=== PATIENT | female | born 1990 | race Caucasian/White ===

== ENCOUNTER 2016-08-02 08:00 | Inpatient (IN) ==
[2016-08-02] MEDS ORDERED: Famotidine 20 MG/2 ML VIAL IVP PRN (08:31)
[2016-08-02] MEDS ORDERED: Naloxone 0.4 MG/ML INJ IVP PRN (08:31)
[2016-08-02] MEDS ORDERED: Metoclopramide 10 MG/2 ML VIAL IVP PRN (08:31)
[2016-08-02] MEDS ORDERED: Ringers Solution, Lactated 1,000 ML IVC SCH (08:45)
[2016-08-02] MEDS ORDERED: miSOPROStol 100 MCG TABLET PO SCH ×2 (08:49→12:00)
[2016-08-02 08:50] LABS: Basophils % 0.3 %; Eosinophils % 0.4 %; Hematocrit 38.1 % (35.3-44.9); Hemoglobin 13.2 g/dL (11.5-15.4); Immature Granulocytes % 0.4 % (0-4); Lymphocytes # 2.2 K/mcL (0.6-4.6); Lymphocytes % 23.9 %; Mean Corpuscular HGB Conc 34.6 g/dL (31.6-35.5); Mean Corpuscular Hemoglobin 29.6 pg (28.0-33.3); Mean Corpuscular Volume 85.4 fL (83.0-100.0); Mean Platelet Volume 12.9 fL (9.4-12.4); Monocytes # 0.4 K/mcL (0.0-1.3); Monocytes % 4.8 %; Neutrophils # 6.3 K/mcL (1.6-8.9); Platelet Count 274 K/mcL (140-400); Red Blood Count 4.46 M/mcL (3.82-4.97); Red Cell Distribution Width 13.7 % (11.5-14.5); Segmented Neutrophils % 70.2 %
--- NOTE | 2016-08-02 08:57 | OB/GYN History & Physical ---
Date of Encounter: 08/02/16 Time of Encounter: 08:52 Assessment and Plan (1) 39 weeks gestation of Current visit: Yes Status: Acute 39w 6d. complications: Obesity Family hx cleft palate with cleft lip. Blood type: O+ GBS: (-) Planned induction today. (2) Elective induction of labor planned Current visit: Yes Status: Acute Admit to labor and delivery. Cytotec 50mg PO Routine expectant management. Patient desires epidural for pain control. Expectant vaginal delivery. History of Present Illness Chief complaint: scheduled induction HPI: Ms. Parker is a 26 year old female presents from home for scheduled induction. at 39w 6d. complications: Obesity Family hx cleft palate with cleft lip. Blood type: O+ GBS: (-) HbSAg: nonreactive Ruella IgG: positive Varicella IgG: positive T. pallidum Ab: negative HIV: negative CF: negative Past Med Surg Social Fam HX - Past Medical History Medical history: no medical history Psychiatric history: no psych history - Social History Smoking Status: Never smoker Smokeless Tobacco Status: No Alcohol use: none Drug use: none - Family History Mother Hx Family Cardiac Disorders: Yes (HTN) Hx Family Endocrine Disorder: Yes (DM) Obstetrical History - Pregnancies : 1 Para: 0 Term: 0 : 0 Ab's: 0 Livin Medications and Allergies Acetaminophen [Tylenol] 325 mg PO PRN PRN 08/02/16 [History] Vit/Iron Fumarate/FA [ Tablet] 1 tab PO DAILY 08/02/16 [History ] Promethazine [Phenergan] 1 tab PO PRN PRN 08/02/16 [History] Ranitidine HCl [Zantac 75] 1 tab PO PRN PRN 08/02/16 [History] Allergies No Known Allergies Allergy (Verified 08/02/16 08:40) Review of System OB All systems PM: reviewed and no additional remarkable complaints except as stated - Constitutional Constitutional ROS IM: no fever(s), no headache(s), no lethargy, no malaise - Nose, mouth, and throat Nose, mouth and throat: no headache(s) - Cardiovascular Cardiovascular: no chest pain, no claudication, no dyspnea, no edema, no palpitations - Respiratory Respiratory: no cough, no dyspnea, no wheezing - Gastrointestinal Gastrointestinal: heartburn, nausea, no change in stool character - Genitourinary Genitourinary: no difficulty urinating, no dysuria, no vaginal discharge - Neurological Nerological: no dizziness, no vertigo Exam - Constitutional Constitutional: well developed, well nourished, no acute distress, obese - HEENT HEENT: Normocephaly, Mucus Membranes Moist - Neck Neck exam: normal inspection - Lungs Respiratory exam: CTAB - Cardiovascular Cardiovascular exam: RRR, +S1, +S2 - Abdomen Abdomen: Present: bowel sounds normal, gravid, non tender. Absent: guarding noted - Extremities Extremities exam: normal capillary refill, warm, radial pulses palpable and symetrical Results Result Diagrams: 08/02/16 08:35 Abnormal lab results MPV 12.9 fL (9.4-12.4) H 08/02/16 08:35 All other labs normal. - VTE Reasons for not Prescribing Prophylaxis: Treatment not Indicated - Low risk for VTE - Attending Attestation I examined this patient and my medical decision-making was reviewed with the IN HOME SALES CONSULTANT/PA/Advanced Practice Nurse/Resident Physician. I agree with the documented findings, disposition and treatment plan as described except to the extent set forth below.
[2016-08-02] MEDS ORDERED: miSOPROStol 100 MCG TABLET PO STA (09:16)
--- NOTE | 2016-08-02 11:43 | OB Labor Progress Note ---
Date of Encounter: 08/02/16 Time of Encounter: 11:41 Labor Progress Note - Subjective Subjective: Patient resting in bed. Denies any pain at this time. Discussed POC with patient. Patient denies any questions or concerns. - Cervix Cervix: 3/80/-2 - Heart Tones Heart Tones: 135 bpm moderate variability +15x15 accels no decel noted. Cat. 1 tracing - Chesaning Chesaning: 2-3 min apart - Interventions Interventions: SVE, AROM large amount of clear fluid. Patient tolerated well. - Plan Plan: Continue labor management. Nubain or Epidural for pain management if desires.
[2016-08-02] MEDS ORDERED: *HR* Nalbuphine 20 MG/ML AMPUL IM PRN (13:41)
[2016-08-02] MEDS: Ondansetron 4 MG/2 ML VIAL IVP PRN ×2 (14:08→23:34)
--- NOTE | 2016-08-02 14:29 | Anesthesia Evaluation PreOp ---
Date of Encounter: 08/02/16 Time of Encounter: 14:26 - Past History Planned Operation: labor epidural Cardiac History: Denies any Significant Hx Pulmonary History: Asthma (exercise-induced asthma, no meds, no recent attacks.) PROCED TECH History: Denies Any Significant HX Other Medical History: Denies Any Significant HX Anesthesia History: No Prior Anesthetic Complications, Past Anesthesia (wrist surgery, ankle surgery, tonsillectomy, colonoscopy.) : Yes Alcohol Use: none Drug use: none Medications and Allergies Acetaminophen [Tylenol] 325 mg PO PRN PRN 08/02/16 [History] Vit/Iron Fumarate/FA [ Tablet] 1 tab PO DAILY 08/02/16 [History ] Promethazine [Phenergan] 1 tab PO PRN PRN 08/02/16 [History] Ranitidine HCl [Zantac 75] 1 tab PO PRN PRN 08/02/16 [History] Allergies No Known Allergies Allergy (Verified 08/02/16 08:40) - Meds/Allergy Pre-op Review Medications Reviewed: Yes Allergies Reviewed: Yes Beta Blockers on Current Med List: No Anesthesia Results - Labs 08/02/16 08:35 Anesthesia Exam 137/81, 87, 16, 99% Height: 5'6" Weight: 230# NPO (# of Hours): 8 Pain Scale: 5 Pain Scale Used: Numeric (1 - 10) - HEENT Pupil (Motor): Pupils equal Mallampati: III Teeth: Normal Oral Opening: Greater than 3 - PROCED TECH LOC: Oriented PROCED TECH Motor: Normal RUE, Normal LUE, Normal RLE, Normal LLE, Normal Face PROCED TECH Sensory: Normal: RUE, LUE, RLE, LLE, Face - Cardiac Rhythm: Regular - Pulmonary Breath Sounds: bilateral Clear Respiratory Effort: Symmetrical Anesthesia Assess/Plan ASA Score: 2 Modified Melissa Scale for Level of Consciousness: Cooperative, oriented, and tranquil Anesthetic Plan: Regional Monitoring Plan: Standard Monitors
[2016-08-02] MEDS ORDERED: Bupivacaine-MPF 0.25% 10 ML VIAL EP ONE (14:32)
[2016-08-02] MEDS ORDERED: *HR* FentaNYL (PF) 100 MCG/2 ML VIAL EP ONE (14:32)
[2016-08-02] MEDS ORDERED: Epidural Premix (fent/bupiv) 110 ML EP SCH (14:45)
--- NOTE | 2016-08-02 15:18 | OB Labor Progress Note ---
Date of Encounter: 08/02/16 Time of Encounter: 15:16 Labor Progress Note - Subjective Subjective: The patient reports increasing discomfort with contractions. Not requesting epidural at this time. - Vital Signs Vital Signs: Afebrile, vital signs stable - Cervix Cervix: 6/80/-1 - Heart Tones Heart Tones: 120s, CAT 1 - Searchlight Searchlight: Contractions are not tracing well, irregular on external toco - Interventions Interventions: 39 week IUP induction of labor - Plan Plan: Continue induction of labor. Anesthesia has requested for pain management. Anticipate vaginal delivery
[2016-08-02] MEDS ORDERED: Epidural Premix (fent/bupiv) 110 ML EP ONE ×2 (16:41→23:26)
[2016-08-02] MEDS ORDERED: Bupivacaine-MPF 0.25% 10 ML VIAL ONE ×2 (16:41→22:25)
[2016-08-02] MEDS ORDERED: *HR* FentaNYL (PF) 100 MCG/2 ML VIAL ONE (16:41)
--- NOTE | 2016-08-02 17:17 | Anesthesia Procedures ---
Date of Encounter: 08/02/16 Time of Encounter: 16:43 Procedures: Anesthesia - Epidural/Spinal Patient ID/Chart reviewed: Yes Patient examined: Yes OB Eval: Gestational age: 39 OB Eval: : 1 OB Eval: Hx Para: 0 OB Eval: Dilated at (cm): 6 OB Eval: Contractions: Non-stressed pattern Consent Obtained: Yes Supplemental Oxygen: None/Room Air Site Prep: Aseptic Technique, Sterile prep and drape, Povidone-Iodine 1% Patient position: upright Local Anesthetic: Lidocaine 1% Amount of Local Anesthetic used: 5 Touhy Needle Gauge: 19 Touhy Needle Depth (cm): 6 Catheter Depth at Skin (cm): 18 Test Dose (1.5% Lido + Epi): Volume given (mls): 3 Test Dose Result: Negative Loading Dose: 0.25% Marcaine (mls): 8 Loading Dose: Fentanyl (mcg): 100 Loading Dose Administered: Thru Catheter Infusion Med: 0.125% Bupivacaine w/ 2 mcg/ml Fentanyl Infusion Rate (mls/hr): [address]: Tegaderm, Tape Interspace Used: L3-L4 Loss of Resistance (BLADIMIR): Yes Blood: No CSF: No Paresthesia: No Vitals + FHT's: 3 Vital Signs Time 1650 1655 1700 1705 1710 1715 BP 134/92 17/65 153/79 160/68 156/73 149/71 Pulse 73 89 97 88 102 91 FHTs 120 120 120 120 120 120
[2016-08-02] MEDS ORDERED: Oxytocin 20 units/ LR 1000 mL 20 UNIT/1,000 ML BAG IVC SCH (19:15)
--- NOTE | 2016-08-02 22:38 | Anesthesia Progress Note ---
Date of Encounter: 08/02/16 Time of Encounter: 22:25 Anesthesia Note - Note Note: 08/02/16 22:35 called to LDR 10 for c/o pain with contractions to low abdomen and pelvis. Patient 9.5 cm dilated. Epidural working and has not migrated. Aspirated and negative for CSF and blood. Injected 0.25% bupivacaine 10ml in 3 divided doses. Patient tolerated well, Maternal VVV and FHTs stable throughout.
[2016-08-02] MEDS ORDERED: Lidocaine/EPI 1:100k 1% 30 ML VIAL ONE (23:26)
[2016-08-03] MEDS ORDERED: Acetaminophen 325 MG TABLET PO ONE (00:34)
[2016-08-03 01:55] LABS: Alanine Aminotransferase 26 Units/L (0-55); Aspartate Amino Transferase 23 Units/L (5-34); BUN/Creatinine Ratio 11 (6-26); Blood Urea Nitrogen 8 mg/dL (7-20); Lactate Dehydrogenase 167 Units/L (159-327); Uric Acid 7.4 mg/dL (2.6-6.0); eGFR For African Americans > 60 (> 60); eGFR For Non-African Americans > 60 (> 60)
--- NOTE | 2016-08-03 02:48 | OB Labor Progress Note ---
Date of Encounter: 08/03/16 Time of Encounter: 02:46 Labor Progress Note - Subjective Subjective: pt comfortable w/ epidural - Vital Signs Vital Signs: T99.4, bp 140s/80s - Cervix Cervix: complete/+2 - Heart Tones Heart Tones: 130s CAT1 - [place]: q2-3' x 40-50mg - Interventions Interventions: Term induction, complete, elevated BPs in labor - Plan Plan: Start pushing, LFTs reviewed, observe temp, Tylenol given
--- NOTE | 2016-08-03 04:11 | OB/GYN Procedure Note ---
Delivery - Delivery Date: 08/03/16 Provider: Lara Avalos Delivery induction: misoprostol Delivery augmentation: rupture of membranes, pitocin Delivery monitor: external FHT, external uterine, internal uterine Anesthesia: intravenous, epidural Estimated Blood Loss: 100 - (s) A Infant Delivery Date: 08/03/16 Infant Delivery Time: 03:39 Presentation: vertex Position: ADOLFO Route of delivery: Gender: Male Viability: Viable Pounds: 7 Ounces: 10 at 1 minute: 8 at 5 mins: 9 Shoulder Dystocia: not encountered Specimens collected: cord blood Placenta: spontaneous, uterine exploration Cord: 3 umbilical vessels - Repair Episiotomy: none Laceration Description: Vaginal - Complications Delivery complications: none Delivery comments: The patient was complete and pushing with epidural anesthesia with a spontaneous vaginal delivery in the ADOLFO position of a vigorous male weighing 7 lbs. 10 oz. with Apgars of 8 at 1 minute and 9 at [address] was [address] on the maternal abdomen. The cord was clamped and cut after pulsations ceased. Cord blood obtained. The placenta was delivered spontaneous and intact. Right vaginal laceration was repaired with 3-0 Vicryl in a running locking fashion. Estimated blood loss 100 mL, complications none - Disposition Mom disposition: stable in LDR [place] disposition: stable in LDR
[2016-08-03] MEDS ORDERED: Oxytocin 20 units/ LR 1000 mL 20 UNIT/1,000 ML BAG IVC SCH (05:51)
[2016-08-03] MEDS ORDERED: Rho Immune Globulin 1,500 UNIT SYRINGE IM PRN (05:51)
[2016-08-03] MEDS ORDERED: Measles/Mumps/Rubella Vacc 0.5 ML VIAL SQ PRN (05:51)
[2016-08-03] MEDS ORDERED: *HR* HYDROcodone/Acet 5/325 mg TABLET PO PRN (05:51)
[2016-08-03] MEDS: Prenatal Vit/FA 1 EACH TABLET PO SCH (08:59)
[2016-08-03] MEDS: Ibuprofen 600 MG TABLET PO PRN ×2 (08:59→18:12)
[2016-08-04 07:07] LABS: Basophils # 0.1 K/mcL (0.0-0.2); Basophils % 0.4 %; Eosinophils # 0.1 K/mcL (0.0-0.6); Eosinophils % 0.6 %; Hematocrit 31.3 % (35.3-44.9); Hemoglobin 10.2 g/dL (11.5-15.4); Immature Granulocytes % 0.4 % (0-4); Lymphocytes # 2.2 K/mcL (0.6-4.6); Lymphocytes % 18.5 %; Mean Corpuscular HGB Conc 32.6 g/dL (31.6-35.5); Mean Corpuscular Hemoglobin 28.6 pg (28.0-33.3); Mean Corpuscular Volume 87.7 fL (83.0-100.0); Mean Platelet Volume 13.1 fL (9.4-12.4); Monocytes # 0.7 K/mcL (0.0-1.3); Monocytes % 5.7 %; Neutrophils # 8.8 K/mcL (1.6-8.9); Platelet Count 211 K/mcL (140-400); Red Blood Count 3.57 M/mcL (3.82-4.97); Red Cell Distribution Width 14.1 % (11.5-14.5); Segmented Neutrophils % 74.4 %
--- NOTE | 2016-08-04 09:34 | Discharge Summary ---
Date of Encounter: 08/04/16 Time of Encounter: 09:32 - Discharge Diagnosis (1) 39 weeks gestation of Priority: Secondary Status: Acute (2) Elective induction of labor planned Priority: Secondary Status: Acute (3) Vaginal delivery Priority: Primary Status: Acute Comments: Meeting milestones - Discharge Medications Prescriptions: HYDROcodone/Acet 5/325 mg [[place] 5-325 mg] 1 tab PO Q6HR PRN #20 tablet PRN Reason: Moderate Pain (4-6) Ibuprofen [Motrin] 600 mg PO Q6HR PRN #30 tablet PRN Reason: Cramping Ferrous Sulfate 325 mg PO DAILY #30 tablet Home Medications: Vit/Iron Fumarate/FA [ Tablet] 1 tab PO DAILY 08/02/16 [History ] Promethazine [Phenergan] 1 tab PO PRN PRN 08/02/16 [History] Ranitidine HCl [Zantac 75] 1 tab PO PRN PRN 08/02/16 [History] Ferrous Sulfate 325 mg PO DAILY #30 tablet 08/04/16 [Rx] HYDROcodone/Acet 5/325 mg [[place] 5-325 mg] 1 tab PO Q6HR PRN #20 tablet [Rx] Ibuprofen [Motrin] 600 mg PO Q6HR PRN #30 tablet 08/04/16 [Rx] Allergies/Adverse Reactions: Allergies No Known Allergies Allergy (Verified 08/02/16 08:40) Data Procedures and tests throughout hospitalization: Laboratory Tests 08/02/16 08/03/16 08/04/16 08:35 01:07 06:20 WBC 9.0 11.8 H RBC 4.46 3.57 L Hgb 13.2 10.2 L D Hct 38.1 31.3 L MCV 85.4 87.7 MCH 29.6 28.6 MCHC 34.6 32.6 RDW 13.7 14.1 Plt Count 274 211 MPV 12.9 H 13.1 H Immature Gran % 0.4 0.4 Seg Neutrophils % 70.2 74.4 Lymphocytes % 23.9 18.5 Monocytes % 4.8 5.7 Eosinophils % 0.4 0.6 Basophils % 0.3 0.4 Neutrophils # 6.3 8.8 Lymphocytes # 2.2 2.2 Monocytes # 0.4 0.7 Eosinophils # 0.0 0.1 Basophils # 0.0 0.1 BUN 8 Creatinine 0.73 Est GFR ( Amer) > 60 Est GFR (Non-Af Amer) > 60 BUN/Creatinine Ratio 11 Uric Acid 7.4 H AST 23 ALT 26 Lactate Dehydrogenase 167 Labs on day of discharge: Labs from last 24 hours 08/04/16 06:20 WBC 11.8 H RBC 3.57 L Hgb 10.2 L D Hct 31.3 L MCV 87.7 MCH 28.6 MCHC 32.6 RDW 14.1 Plt Count 211 MPV 13.1 H Immature Gran % 0.4 Seg Neutrophils % 74.4 Lymphocytes % 18.5 Monocytes % 5.7 Eosinophils % 0.6 Basophils % 0.4 Neutrophils # 8.8 Lymphocytes # 2.2 Monocytes # 0.7 Eosinophils # 0.1 Basophils # 0.1 Date of admission: 08/02/16 08:17 Primary care physician: KERRY PTETY Consults: 08/03/16 05:51 Consult to Hospital Ward Clerk [CONS] Routine Comment: Vaginal delivery, consult needed Discharging clinician: Lara Avalos Anticipated date of discharge: 08/04/16 - Patient Status Disposition: Home, Self-Care Condition: Good Functional capacity at discharge: independent ambulation Overall status at discharge: patient is progressing back to baseline - Discharge Instructions Follow Up With: NO,PCP [Primary Care Provider] - - Diet and Activity Activity: increase activity as tolerated, resume usual activities as tolerated Diet: regular diet Hospital Course Reason for admission: induction of labor Delivery: Episiotomy: none Laceration: vaginal side wall Other procedures: none complications: none Discharge diagnosis: IUP at term delivered [place] baby: male Hospital course: Uncomplicated meeting milestones Time Attestation: Total time spent providing and/or coordinating discharge services: Time Spent: Less than 30 minutes Exam - Constitutional Vitals: Temp Pulse Resp BP Pulse Ox 97.7 F 89 12 124/85 96 08/04/16 03:49 08/04/16 03:49 08/04/16 03:50 08/04/16 03:49 08/04/16 03:49 General appearance IM: cooperative, A&O X 3, pleasant, no acute distress - Respiratory Respiratory exam: Absent: respiratory distress - Cardiovascular Cardiovascular exam IM: Absent: irregular rhythm - GI/Abdominal GI/Abdominal exam IM: normal bowel sounds, soft, no peritoneal signs - Rectal Rectal exam: deferred - Uterine Tone: Firm Uterus Position: 2 Fingers Below Umbilicus, Midline - Extremities Exam Extremities exam IM: Absent: calf tenderness - Neurological Exam Neurological exam: alert, no focal deficits
[2016-08-04] MEDS: Ibuprofen 600 MG TABLET PO PRN (09:41)
[2016-08-04] MEDS: Prenatal Vit/FA 1 EACH TABLET PO SCH (09:41)
[2016-08-04 10:04] VITALS: BP 139/87
[2016-08-04] MEDS ORDERED: Lanolin 7 G OINT...G. TP PRN (15:15)
== END 2016-08-04 15:50 | disposition home or self-care (01) | DRG 775 ==
LOC: 1NENULAB 08:17 → 1NENUOBS 08-03 05:49
PROVIDERS: ADMIT Obstetrics & Gynecology; ATTEND Obstetrics & Gynecology

== ENCOUNTER 2018-01-05 21:07 | Inpatient (IN) ==
[~2018-01-05 21:07] MED LIST: *HR* Nalbuphine 10 MG/ML AMPUL IVP PRN; Famotidine 20 MG/2 ML VIAL IVP PRN; Metoclopramide 10 MG/2 ML VIAL IVP PRN; Naloxone 0.4 MG/ML INJ IVP PRN; Ondansetron 4 MG/2 ML VIAL IVP PRN
[2018-01-05] MEDS ORDERED: Ringers Solution, Lactated 1,000 ML IVC SCH (21:15)
[2018-01-05] MEDS ORDERED: Ringers Solution, Lactated 1,000 ML ONE (21:20)
[2018-01-05] MEDS ORDERED: Oxytocin 20 units/ LR 1000 mL 20 UNIT/1,000 ML BAG IVC SCH (21:45)
[2018-01-05 21:46] LABS: Basophils % 0.2 %; Eosinophils % 0.1 %; Hematocrit 37.5 % (35.3-44.9); Hemoglobin 13.1 g/dL (11.5-15.4); Immature Granulocytes % 0.4 % (0-4); Lymphocytes # 1.6 K/mcL (0.6-4.6); Lymphocytes % 15.6 %; Mean Corpuscular HGB Conc 34.9 g/dL (31.6-35.5); Mean Corpuscular Hemoglobin 30.1 pg (28.0-33.3); Mean Corpuscular Volume 86.2 fL (83.0-100.0); Mean Platelet Volume 12.3 fL (9.4-12.4); Monocytes # 0.6 K/mcL (0.0-1.3); Neutrophils # 7.7 K/mcL (1.6-8.9); Platelet Count 263 K/mcL (140-400); Red Blood Count 4.35 M/mcL (3.82-4.97); Red Cell Distribution Width 12.9 % (11.5-14.5); Segmented Neutrophils % 77.7 %
[2018-01-05 21:47] LABS: Amphetamine Screen,Urine Negative ng/mL (Cutoff=1000); Barbiturate Screen,Urine Negative ng/mL (Cutoff=200); Benzodiazepines Screen,Urine Negative ng/mL (Cutoff=200); Cannabinoid Screen,Urine Negative ng/mL (Cutoff = 50); Cocaine Screen,Urine Negative ng/mL (Cutoff= 300); Opiate Screen,Urine Negative ng/mL (Cutoff=300); Phencyclidine Screen,Urine Negative ng/mL (Cutoff=25)
[2018-01-05 21:59] LABS: Alanine Aminotransferase 5 Units/L (7-52); Aspartate Amino Transferase 10 Units/L (13-39); BUN/Creatinine Ratio 15 (6-26); Blood Urea Nitrogen 6 mg/dL (6-20); Lactate Dehydrogenase 121 Units/L (140-271); Uric Acid 5.2 mg/dL (2.3-7.6); eGFR For Non-African Americans > 60 (> 60)
--- NOTE | 2018-01-05 22:02 | OB/GYN History & Physical ---
Date of Encounter: 01/05/18 Time of Encounter: 21:55 Assessment and Plan (1) 39 weeks gestation of Current visit: Yes Status: Acute Admit to Labor and Delivery due to Spontaneous Rupture of Membrane Induction management: Pitocin Pain Management: epidural to be administered upon request Continuous monitoring PIH labs to be reviewed due to elevated BPs on arrival GBS negative Anticipate Vaginal Delivery Dr. Jensen is current OB incident response consultant, and available as needed (2) Intrauterine Current visit: Yes Status: Acute (3) Obesity during Current visit: Yes Status: Acute History of Present Illness Chief complaint: Leakage of Fluid HPI: Ms. Fidel Hammer is a 27 year old female, who presents at 39 weeks 5 days with leakage of clear fluid since 6am this morning (16hrs ago). Denies foul odor of fluid or vaginal bleeding. Endorses movement. Currently notes contractions that have been progressively getting stronger throughout the day. Contractions are currently 4-5 minutes apart. Planned for induction of labor tomorrow with Dr. Avalos, who has provided care throughout . Dr. Jensen is the OB incident response consultant. Lab Results: Blood Type: O-positive Rh Status: Positive GBS Status: Negative Hep B Surf Ag: Nonreactive HIV Ab: Nonreactive Treponema Ab: Negative G/C: Not detected Varicella: Immune Rubella: Immune Urine Drug Screen: Not detected Past Med Surg Social Fam HX - Past Medical History Attestation: Yes The following information was validated with the patient. Source: patient Medical history: migraine Additional medical history: FIBROMYALGIA. GASTRIC ULCER. EXERCISE-INDUCED ASTHMA. RA. BILIARY COLIC Psychiatric history: no psych history - Past Surgical History Surgical History: cholecystectomy Additional surgical history: biopsy,other (stomach). sx right wrist, right foot , right ankle - Social History Smoking Status: Never smoker Smokeless Tobacco Status: No Alcohol use: none Drug use: none - Family History Mother Hx Family Cardiac Disorders: Yes (HTN) Hx Family Endocrine Disorder: Yes (DM) Obstetrical History - Pregnancies : 2 Para: 1 Term: 1 : 0 Ab's: 0 Livin Medications and Allergies Vit/Iron Fumarate/FA [ Tablet] 1 tab PO DAILY 08/02/16 [History ] Acetaminophen [Tylenol] 1 tab PO PRN PRN 01/05/18 [History] raNITIdine HCl [Zantac] 1 tab PO BID 01/05/18 [History] 3 Allergy/AdvReac Type Severity Reaction Status Date / Time No Known Allergies Allergy Verified 01/05/18 20:58 Review of System OB All systems PM: reviewed and no additional remarkable complaints except as stated Exam - Vital Signs Vital signs: Vital Signs Reviewed and Stable - Constitutional Constitutional: well developed, well nourished, no acute distress - HEENT HEENT: EOMI, PERRL - Neck Neck exam: full ROM - Lungs Respiratory exam: CTAB - Cardiovascular Cardiovascular exam: RRR, +S1, +S2 - Abdomen Abdomen: Present: bowel sounds normal, gravid, non tender - Extremities Extremities exam: full ROM, normal capillary refill, normal inspection, radial pulses palpable and symmetrical - Cervix Dilation: 3 (Per NALLELY Tay) Effacement: 80 Station: -2 - Comments Comments: Category 1 Tracing; FHR = 140s Results Result Diagrams: 01/05/18 21:26 01/05/18 21:26 All other labs normal. - VTE Reasons for not Prescribing Prophylaxis: Treatment not Indicated - Low risk for VTE
--- NOTE | 2018-01-05 22:25 | OB Labor Progress Note ---
Date of Encounter: 01/05/18 Time of Encounter: 22:23 Labor Progress Note - Subjective Subjective: Pt comfortable with contractions. Reports they are 4-5 minutes apart. - Cervix Cervix: 5/70/-2 - Heart Tones Heart Tones: FHR Category I - [place]: Contractions q 5 minutes and palpate mild - Interventions Interventions: IUPC - Plan Plan: Continue expectant management Increase pitocin to adequate contraction pattern Frequent position changes Anticipate
[2018-01-05 23:01] LABS: Protein/Creatinine Ratio,Urine 0.7 mg/mg (0.00-0.20)
[2018-01-05] MEDS ORDERED: *HR* Labetalol 20 MG/4 ML SYRINGE IVP ONE ×2 (23:27→23:29)
[2018-01-06] MEDS ORDERED: EPHEDrine 50 MG/ML VIAL IVP PRN (00:18)
[2018-01-06] MEDS ORDERED: Ringers Solution, Lactated 500 ML IVC ONE (00:18)
[2018-01-06] MEDS ORDERED: Lidocaine -MPF 1% 5 ML AMPUL ONE (00:22)
[2018-01-06] MEDS ORDERED: Epidural Premix (fent/bupiv) 110 ML EP SCH (00:30)
[2018-01-06] MEDS ORDERED: Lidocaine/EPI 1:200k 2% PF 20 ML VIAL ONE (00:59)
--- NOTE | 2018-01-06 01:08 | Anesthesia Evaluation PreOp ---
Date of Encounter: 01/06/18 Time of Encounter: 01:07 - Past History Planned Operation: TIA Cardiac History: Denies any Significant Hx Pulmonary History: Denies Any Significant HX LAST SCOURER History: Denies Any Significant HX Other Medical History: Other (Fibromyalgia) Anesthesia History: No Prior Anesthetic Complications, Past Anesthesia : Yes Alcohol Use: none Drug use: none Medications and Allergies Vit/Iron Fumarate/FA [ Tablet] 1 tab PO DAILY 08/02/16 [History ] Acetaminophen [Tylenol] 1 tab PO PRN PRN 01/05/18 [History] raNITIdine HCl [Zantac] 1 tab PO BID 01/05/18 [History] 3 Allergy/AdvReac Type Severity Reaction Status Date / Time No Known Allergies Allergy Verified 01/05/18 20:58 - Meds/Allergy Pre-op Review Medications Reviewed: Yes Allergies Reviewed: Yes Beta Blockers on Current Med List: No Anesthesia Results - Labs 01/05/18 21:26 01/05/18 21:26 Anesthesia Exam O2 Sat Height 1.68 m Weight 108.59 kg Pain Scale: 9 Pain Scale Used: Numeric (1 - 10) - HEENT Pupil (Motor): Pupils equal Mallampati: II Teeth: Normal Oral Opening: Greater than 3 - LAST SCOURER LOC: Oriented LAST SCOURER Motor: Normal RUE, Normal LUE, Normal RLE, Normal LLE, Normal Face LAST SCOURER Sensory: Normal: RUE, LUE, RLE, LLE, Face - Cardiac Rhythm: Regular Murmur: None JVD: No Carotid Bruit: No - Pulmonary Breath Sounds: bilateral Clear Respiratory Effort: Symmetrical Anesthesia Assess/Plan ASA Score: 2 Modified [place] Scale for Level of Consciousness: Cooperative, oriented, and tranquil Anesthetic Plan: General (plan b), Regional (plan a) Autologous Blood: Yes Monitoring Plan: Standard Monitors Recovery Plan: PACU
--- NOTE | 2018-01-06 01:12 | Anesthesia Procedures ---
Date of Encounter: 01/06/18 Time of Encounter: 01:08 Procedures: Anesthesia - Epidural/Spinal Patient ID/Chart reviewed: Yes Patient examined: Yes OB Eval: Gestational age: 39 OB Eval: : 2 OB Eval: Hx Para: 1 OB Eval: Dilated at (cm): 5 (after epidural first check = 9.5cm) OB Eval: Contractions: Non-stressed pattern Consent Obtained: Yes Supplemental Oxygen: None/Room Air Site Prep: Aseptic Technique, Sterile prep and drape, Povidone-Iodine 1% Patient position: upright Local Anesthetic: Lidocaine 1% Amount of Local Anesthetic used: 3 Touhy Needle Gauge: 18 Touhy Needle Depth (cm): 9 Catheter Depth at Skin (cm): 20 Test Dose (1.5% Lido + Epi): Volume given (mls): 5 Test Dose Result: Negative Loading Dose: Other: 10ml epidural pharm bag premix+5ml 2%lido with epi Loading Dose Administered: Thru Catheter Infusion Rate (mls/hr): [address]: Tegaderm, Tape Interspace Used: L3-L4 Loss of Resistance (BLADIMIR): Yes Blood: No CSF: No Paresthesia: No Procedure: pt tolerated procedure well. no complications. vss. fhr stable. pt started at 5cm prior to procedure and progressed to 9.5cm immediately after the epidural was placed. no immediate complications noted. see nursing notes for complete vitals.
--- NOTE | 2018-01-06 01:50 | OB/GYN Procedure Note ---
Delivery - Delivery Date: 01/06/18 Provider: Og Jensen Delivery induction: oxytocin Delivery monitor: external FHT, internal uterine Anesthesia: epidural Quantitated Blood Loss: 200 - (s) A Infant Delivery Date: 01/06/18 Delivery Time: : Presentation: vertex Position: CRISTAL Route of delivery: vacuum extraction Gender: Male Viability: Viable Pounds: 7 Ounces: 2 at 1 minute: 8 at 5 mins: 9 Shoulder Dystocia: not encountered Specimens collected: cord blood Placenta: spontaneous Cord: nuchal cord, 3 umbilical vessels - Repair Episiotomy: none Laceration Description: None - Complications Delivery complications: none - Disposition Mom disposition: stable in LDR [place] disposition: stable in LDR - Comments Comments: 27-year-old female 2 now para 2 presented to labor and delivery after rupture membranes this morning she was alexus regularly for augmentation was given Pitocin to progress fairly quickly eventually reach complete dilatation she was pushing well however she did have deceleration right before delivery down to the 60s to 80s therefore with good maternal effort and + 3 station and vacuum was placed on head. Pressures taken to 600 mmHg a 32nd pull with excellent progression infant was delivered from +3 station infant did rotate during delivery. After delivery of the head was a loose nuchal cord 1 which was reduced. was delivered without difficulty. Cord was clamped cut weight is some be 7 lbs. 2 oz. Apgars of 8 at 1 minute and 9 at 5 minutes by spontaneous delivery three-vessel cord. there is some increased bleeding manual examination to find approximate 3 cm piece of placenta which was removed manually and there were some small membranes adjacent to this. once these were removed uterus did clamp down firmly estimated blood loss 200 ml mother and recovered in labor and delivery
[2018-01-06] MEDS ORDERED: Oxytocin 20 units/ LR 1000 mL 20 UNIT/1,000 ML BAG IVC SCH (04:02)
[2018-01-06] MEDS ORDERED: Measles/Mumps/Rubella Vacc 0.5 ML VIAL SQ PRN (04:02)
[2018-01-06] MEDS ORDERED: Acetaminophen 325 MG TABLET PO PRN (04:02)
[2018-01-06] MEDS ORDERED: Rho Immune Globulin 1,500 UNIT SYRINGE IM PRN (04:02)
[2018-01-06] MEDS: Ibuprofen 600 MG TABLET PO PRN ×3 (05:04→23:02)
[2018-01-06] MEDS: Famotidine 20 MG TABLET PO SCH ×2 (07:55→20:45)
[2018-01-06] MEDS: Prenatal Vit/FA 1 EACH TABLET PO SCH (07:55)
[2018-01-07 06:05] LABS: Basophils % 0.3 %; Eosinophils % 0.3 %; Hematocrit 30.7 % (35.3-44.9); Hemoglobin 10.4 g/dL (11.5-15.4); Immature Granulocytes % 0.6 % (0-4); Lymphocytes % 25.1 %; Mean Corpuscular HGB Conc 33.9 g/dL (31.6-35.5); Mean Corpuscular Hemoglobin 30.2 pg (28.0-33.3); Mean Corpuscular Volume 89.2 fL (83.0-100.0); Monocytes # 0.6 K/mcL (0.0-1.3); Monocytes % 7.2 %; Neutrophils # 5.2 K/mcL (1.6-8.9); Platelet Count 191 K/mcL (140-400); Red Blood Count 3.44 M/mcL (3.82-4.97); Red Cell Distribution Width 13.4 % (11.5-14.5); Segmented Neutrophils % 66.5 %
[2018-01-07] MEDS: Ibuprofen 600 MG TABLET PO PRN (08:03)
[2018-01-07] MEDS: Famotidine 20 MG TABLET PO SCH (08:03)
[2018-01-07] MEDS: Prenatal Vit/FA 1 EACH TABLET PO SCH (08:04)
[2018-01-07 08:32] VITALS: BP 131/97
--- NOTE | 2018-01-07 09:56 | Discharge Summary ---
Date of Encounter: 01/07/18 Time of Encounter: 09:53 - Discharge Diagnosis (1) Vaginal delivery Priority: Primary Status: Acute Comments: Pt meeting milestones. (2) Encounter for care or examination of lactating mother Priority: Secondary Status: Acute Comments: Rx breastpump given. LC consult complete. - Discharge Medications Prescriptions: Ibuprofen [Motrin] 600 mg PO Q6HR PRN #30 tablet PRN Reason: Cramping Docusate [Colace] 100 mg PO BID #60 capsule Home Medications: Vit/Iron Fumarate/FA [ Tablet] 1 tab PO DAILY 08/02/16 [History ] raNITIdine HCl [Zantac] 1 tab PO BID 01/05/18 [History] Breast Pump [BREAST PUMP] 1 each .ROUTE AD #1 each 01/07/18 [Rx] Docusate [Colace] 100 mg PO BID #60 capsule 01/07/18 [Rx] Ibuprofen [Motrin] 600 mg PO Q6HR PRN #30 tablet 01/07/18 [Rx] Allergies/Adverse Reactions: 3 Allergy/AdvReac Type Severity Reaction Status Date / Time No Known Allergies Allergy Verified 01/05/18 20:58 Data Procedures and tests throughout hospitalization: Laboratory Tests 01/05/18 01/05/18 01/05/18 21:26 21:26 21:26 WBC 9.9 RBC 4.35 Hgb 13.1 Hct 37.5 MCV 86.2 MCH 30.1 MCHC 34.9 RDW 12.9 Plt Count 263 MPV 12.3 Immature Gran % 0.4 Seg Neutrophils % 77.7 Lymphocytes % 15.6 Monocytes % 6.0 Eosinophils % 0.1 Basophils % 0.2 Neutrophils # 7.7 Lymphocytes # 1.6 Monocytes # 0.6 Eosinophils # 0.0 Basophils # 0.0 BUN 6 Creatinine 0.40 L Est GFR ( Amer) > 60 Est GFR (Non-Af Amer) > 60 BUN/Creatinine Ratio 15 Uric Acid 5.2 AST 10 L ALT 5 L Lactate Dehydrogenase 121 L Urine Creatinine Protein/Creatinin Ratio Urine Total Protein Urine Opiates Screen Negative Ur Barbiturates Screen Negative Ur Phencyclidine Scrn Negative Ur Amphetamines Screen Negative U Benzodiazepines Scrn Negative Urine Cocaine Screen Negative U Marijuana (THC) Screen Negative Ur Drug Screen Interp See Below 01/05/18 01/07/18 22:31 05:45 WBC 7.8 RBC 3.44 L Hgb 10.4 L D Hct 30.7 L MCV 89.2 MCH 30.2 MCHC 33.9 RDW 13.4 Plt Count 191 MPV 12.0 Immature Gran % 0.6 Seg Neutrophils % 66.5 Lymphocytes % 25.1 Monocytes % 7.2 Eosinophils % 0.3 Basophils % 0.3 Neutrophils # 5.2 Lymphocytes # 2.0 Monocytes # 0.6 Eosinophils # 0.0 Basophils # 0.0 BUN Creatinine Est GFR ( Amer) Est GFR (Non-Af Amer) BUN/Creatinine Ratio Uric Acid AST ALT Lactate Dehydrogenase Urine Creatinine 179 Protein/Creatinin Ratio 0.70 H Urine Total Protein 126 H Urine Opiates Screen Ur Barbiturates Screen Ur Phencyclidine Scrn Ur Amphetamines Screen U Benzodiazepines Scrn Urine Cocaine Screen U Marijuana (THC) Screen Ur Drug Screen Interp Labs on day of discharge: Labs from last 24 hours 01/07/18 05:45 WBC 7.8 RBC 3.44 L Hgb 10.4 L D Hct 30.7 L MCV 89.2 MCH 30.2 MCHC 33.9 RDW 13.4 Plt Count 191 MPV 12.0 Immature Gran % 0.6 Seg Neutrophils % 66.5 Lymphocytes % 25.1 Monocytes % 7.2 Eosinophils % 0.3 Basophils % 0.3 Neutrophils # 5.2 Lymphocytes # 2.0 Monocytes # 0.6 Eosinophils # 0.0 Basophils # 0.0 Date of admission: 01/05/18 21:07 Primary care physician: PCP NONE Consults: 01/06/18 04:02 Consult to [employer]ing [employer] [CONS] Routine Comment: Vaginal delivery, consult needed Discharging clinician: Rosetta Dawn Anticipated date of discharge: 01/07/18 - Patient Status Disposition: Home, Self-Care Condition: Good Functional capacity at discharge: independent ambulation Overall status at discharge: patient is progressing back to baseline - Discharge Instructions Follow Up With: NONE,PCP [Primary Care Provider] - Og Jensen MD [Partnered Physician] - - Diet and Activity Activity: increase activity as tolerated Diet: regular diet Hospital Course Reason for admission: induction of labor Delivery: vacuum extraction Episiotomy: none Laceration: none Other procedures: none complications: none Discharge diagnosis: IUP at term delivered [place] baby: male Hospital course: - Delivery Date: 01/06/18 Provider: Og Jensen Delivery induction: oxytocin Delivery monitor: external FHT, internal uterine Anesthesia: epidural Quantitated Blood Loss: 200 - Infant (s) A Infant Delivery Date: 01/06/18 Delivery Time: : Presentation: vertex Position: CRISTAL Route of delivery: vacuum extraction Gender: Male Viability: Viable Pounds: 7 Ounces: 2 at 1 minute: 8 at 5 mins: 9 Shoulder Dystocia: not encountered Specimens collected: cord blood Placenta: spontaneous Cord: nuchal cord, 3 umbilical vessels - Repair Episiotomy: none Laceration Description: None - Complications Delivery complications: none - Disposition Mom disposition: home PPD1 disposition: home with mother, Time Attestation: Total time spent providing and/or coordinating discharge services: Time Spent: Less than 30 minutes Exam - Constitutional Vitals: Temp Pulse Resp BP Pulse Ox 97.9 F 84 16 131/97 100 01/07/18 08:00 01/07/18 08:00 01/07/18 08:00 01/07/18 08:00 01/07/18 08:00 General appearance IM: A&O X 3 - Respiratory Respiratory exam: Present: CTAB - Cardiovascular Cardiovascular exam IM: Present: RRR - GI/Abdominal GI/Abdominal exam IM: soft - Uterine Tone: Firm Uterus Position: 1 Finger Below Umbilicus - Extremities Exam Extremities exam IM: Present: normal inspection, pedal edema (mild bilateral ankles) - Neurological Exam Neurological exam: normal gait, oriented X3 - Psychiatric Additional comments: reports tired but otherwise good mood - Other Additional findings: declines contraception at this time
== END 2018-01-07 12:10 | disposition home or self-care (01) | DRG 775 ==
LOC: 1NENULAB → 1NENUOBS 01-06 04:27
PROVIDERS: ADMIT Advanced Practice Midwife; ATTEND Advanced Practice Midwife

== ENCOUNTER 2020-05-18 08:02 | Inpatient (IN) ==
[2020-05-18] MEDS ORDERED: Epidural Premix (fent/bupiv) 110 ML EP SCH (08:30)
[2020-05-18] MEDS ORDERED: EPHEDrine 50 MG/ML VIAL IVP PRN (08:30)
[2020-05-18] MEDS ORDERED: Famotidine 20 MG/2 ML VIAL IVP PRN (08:39)
[2020-05-18] MEDS ORDERED: Lidocaine 1% 20 ML MDV INFILT PRN (08:39)
[2020-05-18] MEDS ORDERED: Metoclopramide 10 MG/2 ML VIAL IVP PRN (08:39)
[2020-05-18] MEDS ORDERED: Ondansetron 4 MG/2 ML VIAL IVP PRN (08:39)
[2020-05-18] MEDS ORDERED: D5% in 0.45% NACL 1,000 ML IVC SCH (08:45)
[2020-05-18] MEDS ORDERED: miSOPROStoL 25 MCG TABLET PO PRN (09:15)
[2020-05-18] MEDS ORDERED: Penicillin G Potassium 5,000,000 UNIT in 0.9 % Sodium Chloride Mini Bag 100 ML IVPB ONE (09:30)
[2020-05-18 09:50] LABS: Basophils % 0.2 %; Eosinophils % 0.1 %; Hematocrit 37.4 % (35.3-44.9); Hemoglobin 12.5 g/dL (11.5-15.4); Immature Granulocytes % 0.4 % (0-4); Lymphocytes # 1.3 K/mcL (0.6-4.6); Lymphocytes % 16.6 %; Mean Corpuscular HGB Conc 33.4 g/dL (31.6-35.5); Mean Corpuscular Hemoglobin 29.5 pg (28.0-33.3); Mean Corpuscular Volume 88.2 fL (83.0-100.0); Mean Platelet Volume 12.2 fL (9.4-12.4); Monocytes # 0.5 K/mcL (0.0-1.3); Monocytes % 5.6 %; Neutrophils # 6.2 K/mcL (1.6-8.9); Platelet Count 254 K/mcL (140-400); Red Blood Count 4.24 M/mcL (3.82-4.97); Red Cell Distribution Width 13.1 % (11.5-14.5); Segmented Neutrophils % 77.1 %; White Blood Count 8.1 K/mcL (4.3-11.1)
[2020-05-18 09:53] LABS: Creatinine,Urine 226 mg/dL; Protein/Creatinine Ratio,Urine 0.25 mg/mg (0.00-0.20)
[2020-05-18 11:33] LABS: Amphetamine Screen,Urine Negative ng/mL (Cutoff=1000); Barbiturate Screen,Urine Negative ng/mL (Cutoff=200); Benzodiazepines Screen,Urine Negative ng/mL (Cutoff=200); Cannabinoid Screen,Urine Negative ng/mL (Cutoff = 50); Cocaine Screen,Urine Negative ng/mL (Cutoff= 300); Opiate Screen,Urine Negative ng/mL (Cutoff=300); Phencyclidine Screen,Urine Negative ng/mL (Cutoff=25)
[2020-05-18] MEDS ORDERED: Penicillin G Potassium 2,500,000 UNIT/105 ML MLS IVPB SCH (12:00)
[2020-05-18] MEDS ORDERED: Oxytocin 20 units/ LR 1000 mL 20 UNIT/1,000 ML BAG IVC SCH ×2 (14:00→20:25)
[2020-05-18 14:25] LABS: Alanine Aminotransferase 8 Units/L (7-52); Aspartate Amino Transferase 13 Units/L (13-39); BUN/Creatinine Ratio 14 (6-26); Blood Urea Nitrogen 6 mg/dL (6-20); Lactate Dehydrogenase 192 Units/L (140-271); Uric Acid 5.8 mg/dL (2.3-7.6); eGFR For African Americans > 60 (> 60); eGFR For Non-African Americans > 60 (> 60)
[2020-05-18] MEDS ORDERED: Ringers Solution, Lactated 1,000 ML ONE ×2 (14:26→15:21)
[2020-05-18] MEDS ORDERED: Lanolin 7 G OINT...G. TP PRN (20:25)
[2020-05-18] MEDS ORDERED: Benzocaine/Menthol 56 GM AEROSOL SPRAY TP PRN (20:25)
[2020-05-18] MEDS ORDERED: Rho Immune Globulin 1,500 UNIT SYRINGE IM PRN (20:25)
[2020-05-18] MEDS: Ibuprofen 600 MG TABLET PO SCH (21:33)
[2020-05-19] MEDS: Acetaminophen 325 MG TABLET PO SCH ×3 (00:30→15:57)
[2020-05-19] MEDS: Ibuprofen 600 MG TABLET PO SCH ×3 (04:38→17:45)
[2020-05-19 06:12] LABS: Basophils % 0.3 %; Eosinophils % 0.1 %; Hematocrit 31.1 % (35.3-44.9); Hemoglobin 10.4 g/dL (11.5-15.4); Immature Granulocytes % 0.5 % (0-4); Lymphocytes # 1.5 K/mcL (0.6-4.6); Lymphocytes % 17.6 %; Mean Corpuscular HGB Conc 33.4 g/dL (31.6-35.5); Mean Corpuscular Hemoglobin 29.2 pg (28.0-33.3); Mean Corpuscular Volume 87.4 fL (83.0-100.0); Mean Platelet Volume 12.1 fL (9.4-12.4); Monocytes # 0.7 K/mcL (0.0-1.3); Monocytes % 7.5 %; Neutrophils # 6.4 K/mcL (1.6-8.9); Platelet Count 211 K/mcL (140-400); Red Blood Count 3.56 M/mcL (3.82-4.97); Red Cell Distribution Width 13.1 % (11.5-14.5); White Blood Count 8.6 K/mcL (4.3-11.1)
[2020-05-19] MEDS ORDERED: Prenatal Vit/FA 1 EACH TABLET PO SCH (09:00)
[2020-05-19 16:06] VITALS: BP 123/87
== END 2020-05-19 18:34 | disposition home or self-care (01) | DRG 560 ==
LOC: 1NENULAB 08:02 → 1NENUOBS 21:36
PROVIDERS: ADMIT Obstetrics & Gynecology; ATTEND Obstetrics & Gynecology